=== PATIENT | male | born 1970 | race Hispanic/Latino ===

== ENCOUNTER 2023-02-04 03:05 | Inpatient (IN) | payer OTHER ==
[2023-02-04] VITALS (29 sets, daily range): BP systolic 104–123; BP diastolic 56–77; PULSE 66–104; RESP 18–20; O2SAT 100
[~2023-02-04] VITALS: Ht 177.8 cm; Wt 87.7 kg
[2023-02-04] MEDS ORDERED: 0.9%NACL 1000ML 1,000 ML IV SCH ×2 (03:30→04:30)
[2023-02-04 03:52] LABS: BASOPHILS # (AUTO) 0.09 K/uL (0.00-0.20); BASOPHILS % (AUTO) 0.3 % (0.0-5.0); EOSINOPHILS # (AUTO) 0.01 K/uL (0.00-0.70); IMMATURE GRANULOCYTE ABSOLUTE 0.31 K/uL (0-1); LYMPHOCYTES % (AUTO) 2.9 % (21.0-51.0); MEAN CORPUSCULAR HEMOGLOBIN 33.6 pg (27.0-33.0); MEAN CORPUSCULAR HGB CONC 36.2 g/dL (32.0-36.0); MEAN CORPUSCULAR VOLUME 92.9 fL (79-99); MONOCYTES % (AUTO) 6.1 % (3.0-13.0); NEUTROPHILS # (AUTO) 29.5 K/uL (1.8-7.7); NEUTROPHILS % (AUTO) 89.8 % (40.0-77.0); PLATELET COUNT (AUTO) 286 K/uL (130-400); RED BLOOD CELL COUNT(AUTO) 5.06 MIL/uL (4.50-6.20); RED CELL DISTRIBUTION WIDTH 11.5 % (11.0-15.5)
[2023-02-04 03:55] LABS: CREATININE 1.2 mg/dL (0.5-1.5); POTASSIUM 4.1 mmol/L (3.5-5.1)
[2023-02-04 04:04] LABS: WHITE BLOOD COUNT (AUTO) 32.9 K/uL (4.8-10.8)
[2023-02-04 04:24] LABS: RAPID GROUP A STREP negative (NEGATIVE)
[2023-02-04] MEDS ORDERED: CEFTRIAXONE 2GM VIAL IVPB ONE (04:30)
[2023-02-04 04:31] LABS: SARS-CoV-2, RNA, NAAT NEGATIVE SARS CoV-2 (NEGATIVE)
[2023-02-04 04:34] LABS: INFLUENZA TYPE A Negative For Type A (NEGATIVE); INFLUENZA TYPE B Negative For Type B (NEGATIVE)
[2023-02-04] MEDS ORDERED: IOHEXOL-350 75 ML VIAL IV ONE (04:47)
[2023-02-04 05:27] LABS: BAND NEUTROPHILS % (MANUAL) 13 % (0-2); LYMPHOCYTES % (MANUAL) 4 % (22-44); MAN.DIFF COMMENT-IMPRESSION MANUAL DIFFERENTIAL; MONOCYTES % (MANUAL) 9 % (2-9); REACTIVE LYMPHOCYTES 1 % (0-0); SEGMENTED NEUTROPHILS % 73 % (40-70); TOTAL CELLS COUNTED 100
[2023-02-04 05:28] LABS: WBC MORPHOLOGY VACUOLATION 1+
[2023-02-04 05:43] LABS: BILIRUBIN,URINE NEGATIVE (NEGATIVE); GLUCOSE, URINE (UA) NEGATIVE (NEGATIVE); KETONES,URINE NEGATIVE (NEGATIVE); LEUKOCYTE ESTERASE ,URINE NEGATIVE Leu/uL (NEGATIVE); NITRATE,URINE NEGATIVE (NEGATIVE); PH,URINE 6.5 (5.0-8.0); PROTEIN,URINE 20 mg/dL (NEGATIVE); UROBILINOGEN,URINE 0.2 mg/dL (0.2-1.0)
[2023-02-04 05:48] LABS: ADD UA MICROSCOPIC YES; APPEARANCE,URINE SLIGHTLY CLOUDY (CLEAR); COLOR,URINE DARK YELLOW (YELLOW)
[2023-02-04 05:49] LABS: SQUAMOUS EPITHELIAL CELL,UR RARE /HPF (0-2); WBC,URINE 0-1 /HPF (0-1)
[2023-02-04] MEDS ORDERED: MORPHINE 4 MG SYG IVP ONE (06:00)
[2023-02-04] MEDS ORDERED: METOCLOPRAMIDE 10 MG/2 ML VIAL IVP ONE (06:00)
[2023-02-04] MEDS ORDERED: ACETAMINOPHEN 325 MG TAB PO PRN (08:00)
[2023-02-04] MEDS ORDERED: MORPHINE 2 MG SYG IVP PRN (08:00)
[2023-02-04] MEDS: 0.9%NACL 1000ML 1,000 ML IV SCH ×2 (09:04→18:00)
[2023-02-04] MEDS: ZOSYN 3.375GM +NS 50ML IV SCH ×3 (09:06→23:36)
[2023-02-04] MEDS: FAMOTIDINE 20MG VIAL IV SCH ×2 (09:14→20:53)
[2023-02-04] MEDS ORDERED: LACTATED RINGERS 1000ML 1,000 ML IV ONE (14:18)
[2023-02-04] MEDS ORDERED: MEPERIDINE-PF 25 MG/ML SYG ONE ×3 (14:35→19:07)
[2023-02-04] MEDS ORDERED: BUPIVACAINE/PF 0.25% 30ML VIAL IJ ONE (15:06)
[2023-02-04] MEDS ORDERED: SUCCINYLCHOLINE CHLORIDE 20 MG/ML 10 ML VIAL ONE (15:11)
[2023-02-04] MEDS ORDERED: LIDOCAINE PF 100MG/5ML (2%) SYRINGE 5ML ONE (15:11)
[2023-02-04] MEDS ORDERED: PROPOFOL 10 MG/ML 20ML VIAL IV ONE ×2 (15:12→16:21)
[2023-02-04] MEDS ORDERED: MIDAZOLAM HCL 1 MG/ML 2ML VIAL ONE (15:12)
[2023-02-04] MEDS ORDERED: ROCURONIUM 10MG/1ML SYR 10 MG/ML ML ONE (15:12)
[2023-02-04] MEDS ORDERED: FENTANYL CITRATE PF 50 MCG/1 ML 2ML VIAL ONE (15:16)
[2023-02-04] MEDS ORDERED: PHENYLEPHRINE HCL 10 MG/ML 1ML VIAL IV ONE (15:32)
[2023-02-04] MEDS ORDERED: ONDANSETRON 4MG INJ ONE (19:07)
[2023-02-04] MEDS: LACTATED RINGERS 1000ML 1,000 ML IV SCH (20:47)
[2023-02-04] MEDS: MORPHINE 4 MG SYG IV PRN (22:44)
[2023-02-05] VITALS (11 sets, daily range): BP systolic 117–135; BP diastolic 69–79; PULSE 83–109; RESP 18–20; TEMP 99; O2SAT 97–100
[2023-02-05] MEDS: LACTATED RINGERS 1000ML 1,000 ML IV SCH ×3 (00:04→17:00)
[2023-02-05] MEDS: MORPHINE 4 MG SYG IV PRN ×3 (01:47→20:00)
[2023-02-05] MEDS ORDERED: HYDROMORPHONE 0.5 MG SYG (0.5MG/0.5ML) IVP ONE (03:00)
[2023-02-05] MEDS: FAMOTIDINE 20MG VIAL IV SCH ×2 (08:27→19:59)
[2023-02-05] MEDS: ZOSYN 3.375GM +NS 50ML IV SCH ×2 (08:28→16:54)
[2023-02-05 09:15] LABS: BASOPHILS # (AUTO) 0.02 K/uL (0.00-0.20); BASOPHILS % (AUTO) 0.2 % (0.0-5.0); HEMATOCRIT 32.5 % (42-54); IMMATURE GRANULOCYTE ABSOLUTE 0.06 K/uL (0-1); LYMPHOCYTES # (AUTO) 0.9 K/uL (1.0-4.8); LYMPHOCYTES % (AUTO) 9.2 % (21.0-51.0); MEAN CORPUSCULAR HEMOGLOBIN 33.7 pg (27.0-33.0); MEAN CORPUSCULAR HGB CONC 34.2 g/dL (32.0-36.0); MEAN CORPUSCULAR VOLUME 98.8 fL (79-99); MONOCYTES # (AUTO) 0.9 K/uL (0.1-1.0); MONOCYTES % (AUTO) 8.5 % (3.0-13.0); NEUTROPHILS # (AUTO) 8.2 K/uL (1.8-7.7); NEUTROPHILS % (AUTO) 81.5 % (40.0-77.0); PLATELET COUNT (AUTO) 208 K/uL (130-400); RED BLOOD CELL COUNT(AUTO) 3.29 MIL/uL (4.50-6.20); RED CELL DISTRIBUTION WIDTH 11.7 % (11.0-15.5); WHITE BLOOD COUNT (AUTO) 10.1 K/uL (4.8-10.8)
[2023-02-05 09:28] LABS: POTASSIUM 3.8 mmol/L (3.5-5.1)
[2023-02-05 09:31] LABS: ALBUMIN 2.1 g/dL (3.5-5.0); BILIRUBIN,TOTAL 2.8 mg/dL (0.2-1.0); TOTAL PROTEIN, SERUM 5.9 g/dL (6.0-8.3)
[2023-02-05 10:50] LABS: ERYTHROCYTE SEDIMENTATION RATE 70 MM/HR (0-20)
[2023-02-05] MEDS: ONDANSETRON 4MG INJ IVP PRN (20:10)
[2023-02-05] MEDS ORDERED: LACTULOSE 20 GM/30 ML UDCUP PO ONE (20:30)
[2023-02-05] MEDS ORDERED: SIMETHICONE 80 MG TAB.CHEW PO SCH (20:30)
[2023-02-06] VITALS (7 sets, daily range): BP systolic 138–159; BP diastolic 77–86; PULSE 76–89; RESP 16–19; O2SAT 96–97
[2023-02-06] MEDS: ZOSYN 3.375GM +NS 50ML IV SCH ×4 (00:22→22:44)
[2023-02-06] MEDS: LACTATED RINGERS 1000ML 1,000 ML IV SCH ×3 (00:37→15:44)
[2023-02-06] MEDS: MORPHINE 4 MG SYG IV PRN (00:39)
[2023-02-06 05:22] LABS: BASOPHILS # (AUTO) 0.03 K/uL (0.00-0.20); BASOPHILS % (AUTO) 0.4 % (0.0-5.0); EOSINOPHILS # (AUTO) 0.02 K/uL (0.00-0.70); EOSINOPHILS % (AUTO) 0.3 % (0.0-8.0); HEMATOCRIT 30.3 % (42-54); IMMATURE GRANULOCYTE ABSOLUTE 0.04 K/uL (0-1); LYMPHOCYTES % (AUTO) 13.4 % (21.0-51.0); MEAN CORPUSCULAR HEMOGLOBIN 33.8 pg (27.0-33.0); MEAN CORPUSCULAR HGB CONC 34.7 g/dL (32.0-36.0); MEAN CORPUSCULAR VOLUME 97.4 fL (79-99); MONOCYTES # (AUTO) 0.7 K/uL (0.1-1.0); MONOCYTES % (AUTO) 8.9 % (3.0-13.0); NEUTROPHILS # (AUTO) 5.8 K/uL (1.8-7.7); NEUTROPHILS % (AUTO) 76.5 % (40.0-77.0); PLATELET COUNT (AUTO) 253 K/uL (130-400); RED BLOOD CELL COUNT(AUTO) 3.11 MIL/uL (4.50-6.20); RED CELL DISTRIBUTION WIDTH 11.6 % (11.0-15.5); WHITE BLOOD COUNT (AUTO) 7.6 K/uL (4.8-10.8)
[2023-02-06 05:46] LABS: ALBUMIN 2.1 g/dL (3.5-5.0); BILIRUBIN,TOTAL 1.7 mg/dL (0.2-1.0); CREATININE 0.9 mg/dL (0.5-1.5); POTASSIUM 3.7 mmol/L (3.5-5.1); TOTAL PROTEIN, SERUM 5.9 g/dL (6.0-8.3)
[2023-02-06] MEDS: ONDANSETRON 4MG INJ IVP PRN (06:12)
[2023-02-06 07:16] LABS: ERYTHROCYTE SEDIMENTATION RATE 80 MM/HR (0-20)
[2023-02-06] MEDS: FAMOTIDINE 20MG VIAL IV SCH ×2 (09:06→20:48)
[2023-02-07] VITALS (7 sets, daily range): BP systolic 136–165; BP diastolic 70–96; PULSE 80–90; RESP 18–20; O2SAT 94
[2023-02-07] MEDS: LACTATED RINGERS 1000ML 1,000 ML IV SCH ×2 (00:51→08:44)
[2023-02-07 06:36] LABS: BASOPHILS # (AUTO) 0.05 K/uL (0.00-0.20); BASOPHILS % (AUTO) 0.8 % (0.0-5.0); EOSINOPHILS # (AUTO) 0.06 K/uL (0.00-0.70); EOSINOPHILS % (AUTO) 0.9 % (0.0-8.0); HEMATOCRIT 29.4 % (42-54); LYMPHOCYTES # (AUTO) 1.3 K/uL (1.0-4.8); LYMPHOCYTES % (AUTO) 19.5 % (21.0-51.0); MEAN CORPUSCULAR HEMOGLOBIN 33.5 pg (27.0-33.0); MEAN CORPUSCULAR HGB CONC 35.4 g/dL (32.0-36.0); MEAN CORPUSCULAR VOLUME 94.8 fL (79-99); MONOCYTES # (AUTO) 0.6 K/uL (0.1-1.0); MONOCYTES % (AUTO) 9.7 % (3.0-13.0); NEUTROPHILS # (AUTO) 4.3 K/uL (1.8-7.7); NEUTROPHILS % (AUTO) 67.5 % (40.0-77.0); PLATELET COUNT (AUTO) 295 K/uL (130-400); RED CELL DISTRIBUTION WIDTH 11.3 % (11.0-15.5); WHITE BLOOD COUNT (AUTO) 6.4 K/uL (4.8-10.8)
[2023-02-07 07:50] LABS: ALBUMIN 1.9 g/dL (3.5-5.0); BILIRUBIN,TOTAL 0.6 mg/dL (0.2-1.0); CREATININE 0.9 mg/dL (0.5-1.5); POTASSIUM 3.8 mmol/L (3.5-5.1); TOTAL PROTEIN, SERUM 5.7 g/dL (6.0-8.3)
[2023-02-07] MEDS: ZOSYN 3.375GM +NS 50ML IV SCH ×2 (08:44→17:46)
[2023-02-07] MEDS: FAMOTIDINE 20MG VIAL IV SCH ×2 (08:45→20:54)
[2023-02-07] MEDS: ONDANSETRON 4MG INJ IVP PRN (08:51)
[2023-02-07] MEDS ORDERED: KETOROLAC 15MG/ML VIAL (15MG/ML) IV PRN (15:00)
[2023-02-08] VITALS: BP 135/81; PULSE 75; RESP 18
[2023-02-08] MEDS: ZOSYN 3.375GM +NS 50ML IV SCH ×2 (00:17→10:49)
[2023-02-08 04:00] VITALS: BP 144/74; PULSE 74; RESP 18
[2023-02-08 08:00] VITALS: BP 158/80; PULSE 77; RESP 19
[2023-02-08] MEDS: FAMOTIDINE 20MG VIAL IV SCH (10:49)
[2023-02-08 11:57] VITALS: BP 149/80; PULSE 74; RESP 19
[2023-02-08 12:00] VITALS: O2SAT 98
== END 2023-02-08 15:37 | disposition home or self-care (01) | DRG 853 ==
LOC: EDH 03:05 → EDHIP 03:06 → 3CH 19:59
PROVIDERS: ADMIT Internal Medicine; ATTEND Internal Medicine
PROC: 0FT44ZZ Resection of Gallbladder, Percutaneous Endoscopic Approach (ICD-10-PCS; principal; 2023-02-04 15:37)
DX: A41.9 Sepsis, unspecified organism (principal); E43 Unspecified severe protein-calorie malnutrition; K80.00 Calculus of gallbladder with acute cholecystitis without obstruction; E87.1 Hypo-osmolality and hyponatremia; Z20.822 Contact with and (suspected) exposure to COVID-19; K82.A1 Gangrene of gallbladder in cholecystitis; E66.9 Obesity, unspecified; R74.01 Elevation of levels of liver transaminase levels; Z68.27 Body mass index [BMI] 27.0-27.9, adult
CPT/HCPCS: 36415; 71045; 74018; 74178; 76705; 78226; 80048; 80053; 81001; 82247; 82306; 82550; 82948; 83605; 83690; 84145; 84484; 85025; 85651; 86140; 87040; 87635; 87804; 87880; 88304; 93005; A9537; C9803; G0378; J0330; J0696; J1170; J2001; J2175; J2250; J2270; J2371; J2405; J2543; J2704; J3010; J3490; J7030; J7120; Q9967; A4215; A4221; A4222; A4223; A4452; A4510; A4649; A4663; C1769; J0665